=== PATIENT | female | born 1965 | race Caucasian/White ===

== ENCOUNTER 2018-09-11 12:04 | Emergency (ER) | payer BC ==
[2018-09-11 12:34] VITALS: BP 145/96
--- NOTE | 2018-09-11 13:06 | UC ---
Respiratory Complaint HPI - HPI Summary HPI Summary: 53 y/o female presents to the urgent care c/o nasal congestion w/ yellowish nasal discharge and moderate PND for the past 1.5 weeks. Pt reports her symptoms worsen for the past 4 days coming into her chest w/ productive cough and yellowish phlegm. Pt is a heavy everyday smoker. She has taken Mucinex PO to alleviate symptoms w/o any improvement. Mild sore throat and hoarseness. She couldn't sleep last night due to cough. Pt denies fever, FERNANDEZ, SOB, wheezing, chest pain,abdominal pain, N/V/D, dizziness. - History of Current Complaint Chief Complaint: UCRespiratory Stated Complaint: COUGH, HEAVY CHEST Time Seen by Provider: 09/11/18 13:02 Hx Obtained From: Patient ?: No - Menopausal Onset/Duration: Gradual Onset, Lasting Weeks - 1.5 weeks, Still Present, Worse Since - 4 days Timing: Intermittent Episodes Severity Initially: Mild Severity Currently: Moderate Pain Intensity: 4 Pain Scale Used: 0-10 Numeric Character: Cough: Productive, Sputum Description: - yellowish Aggravating Factors: Recumbent Position Alleviating Factors: OTC Meds - Mucinex PO Associated Signs And Symptoms: Positive: URI, Nasal Congestion, Hoarseness, Sinus Discomfort. Negative: Dyspnea, Fever, Chills, Wheezing - Risk Factors Pulmonary Embolism Risk Factors: Negative Cardiac Risk Factors: Negative, Hypertension, Smoking Pseudomonas Risk Factors: Negative Tuberculosis Risk Factors: Negative - Allergies/Home Medications Allergies/Adverse Reactions: Allergies Allergy/AdvReac Type Severity Reaction Status Date / Time No Known Allergies Allergy Verified 09/11/18 12:35 Home Medications: Home Medications Levothyroxine TAB* [Synthroid 125 MCG TAB*] 125 mcg PO 0800 09/11/18 [History Confirmed 09/11/18] Lisinopril TAB* [Prinivil TAB 5 MG*] 5 mg PO DAILY 09/11/18 [History Confirmed 09/11/18] Omeprazole 20 mg PO DAILY 09/11/18 [History Confirmed 09/11/18] guaiFENesin [Mucinex] 600 mg PO BID 09/11/18 [History Confirmed 09/11/18] PMH/Surg Hx/FS Hx/Imm Hx Previously Healthy: Yes Endocrine History: Hypothyroidism, Dyslipidemia Cardiovascular History: Hypertension - Surgical History Surgical History: None - Family History Known Family History: Positive: None - Pt denies PMHX - Social History Occupation: Employed Full-time Lives: With Family Alcohol Use: None Substance Use Type: None Smoking Status (MU): Heavy Every Day Tobacco Smoker Type: Cigarettes Amount Used/How Often: 1/2 ppd Length of Time of Smoking/Using Tobacco: since age 19 Have You Smoked in the Last Year: Yes Review of Systems All Other Systems Reviewed And Are Negative: Yes Constitutional: Positive: Negative Skin: Positive: Negative Eyes: Positive: Negative ENT: Positive: Sore Throat, Ear Ache - left ear pain, Nasal Discharge - yellowish, Sinus Congestion, Sinus Pain/Tenderness, Other - hoarseness Respiratory: Positive: Cough - productive w/ yellowish phlegm Cardiovascular: Positive: Negative Gastrointestinal: Positive: Negative Genitourinary: Positive: Negative Motor: Positive: Negative Neurovascular: Positive: Negative Musculoskeletal: Positive: Negative Neurological: Positive: Negative Psychological: Positive: Negative Is Patient Immunocompromised?: No Physical Exam - Summary Physical Exam Summary: Vital Signs Reviewed: Yes General: well developed, well nourished female sitting in the examining table w/ o any apparent distress Eyes: Positive: Conjunctiva Clear - PERRLA, EOMI, fundi grossly normal ENT: Positive: Normal ENT inspection, Hearing grossly normal, Pharynx normal, Nasal congestion - edematous and erythematous nasal mucosa, Nasal drainage - yellowish drainage, TMs normal. Negative: Tonsillar swelling, Tonsillar exudate Neck: Positive: Supple, Nontender, No Lymphadenopathy Respiratory: no orthopnea or dyspnea. Able to speak in full sentences, no retractions or accessory muscle use, no tripod position, stridor, or head bobbing. Positive breath sounds bilaterally. diffuse scattered rhonchi on b/ L lungs, no wheezes, no crackles or rales. Cardiovascular: Positive: RRR, No Murmur, Pulses Normal, Brisk Capillary Refill Abdomen Description: Positive: Nontender, No Organomegaly, Soft. Negative: CVA Tenderness (R), CVA Tenderness (L) Bowel Sounds: Positive: Present Musculoskeletal Exam: Normal Musculoskeletal: Positive: Strength Intact, ROM Intact, No Edema Neurological Exam: Normal Psychological Exam: Normal Skin Exam: Normal Triage Information Reviewed: Yes Vital Signs: Initial Vital Signs Temp 98 F 09/11/18 12:28 Pulse 103 09/11/18 12:28 Resp 16 09/11/18 12:28 BP 145/96 09/11/18 12:28 Pulse Ox 100 09/11/18 12:28 Respiratory Course/Dx - Course Course Of Treatment: 53 y/o female presents to the urgent care c/o nasal congestion w/ yellowish nasal discharge and moderate PND for the past 1.5 weeks. Pt reports her symptoms worsen for the past 4 days coming into her chest w/ productive cough and yellowish phlegm. Pt is a heavy everyday smoker. She has taken Mucinex PO to alleviate symptoms w/o any improvement. Mild sore throat and hoarseness. She couldn't sleep last night due to cough. Pt denies fever, FERNANDEZ, SOB, wheezing, chest pain,abdominal pain, N/V/D, dizziness. Hx obtained. Pt w/ B/L posterior lungs w/ scattered rhonchi on examination. O2SAt: 100%. Hx obtained. Pt w/ B/L lungs scattered wheezing and rhonchi on examination. O2Sat:97%. Pt w/ PMHX of asthma and heavy smoker in the past. Pt probably w/ a COPD exacerbation. Chest X-ray ordered: impression: findings of COPD, no acute disease observed. Pt will be tx w/ Rx Doxycycline PO , Albuterol inhaler and Tessalon tabs as directed below. Strongly advised to f/u with her PCP for further management she may be developing COPD. She also has elevated BP today, advised to decrease salt in her diet and monitor BP, if it continues to be elevated to f/u with her PCP. Pt understood and agreed with D/C instructions and left the clinic hemodynamically stable. - Differential Dx/Diagnosis Differential Diagnosis/HQI/PQRI: Asthma, Bronchitis, Influenza, Lower Resp Infection, Sinusitis, Other - pneumonia Provider Diagnosis: Acute bronchitis, Uncontrolled hypertension Discharge - Sign-Out/Discharge Documenting (check all that apply): Patient Departure - D/C home All imaging exams completed and their final reports reviewed: Yes - Discharge Plan Condition: Stable Disposition: HOME Prescriptions: Albuterol HFA INHALER* [Ventolin HFA Inhaler*] 1 - 2 puff INH Q6H PRN #1 mdi PRN Reason: bronchospasm Benzonatate CAP* [Tessalon 100 MG CAP*] 100 mg PO TID #21 cap DOXYcycline CAP(*) [DOXYcycline 100MG CAP(*)] 100 mg PO BID #20 cap Patient Education Materials: Acute Bronchitis (ED) Referrals: Hina Romano MD [Primary Care Provider] - 3 Days Additional Instructions: 1-Please take full course of antibiotic to avoid resistance. Take yogurts w/ probiotics or Culturelle to protect your GI system 2-Take Tessalon PO tabs as directed and use the albuterol inhaler to alleviate cough. Increase fluid intake, rest and eat well. 3- If symptoms do not improve or worsen or your develop SOB with fever and severe wheezing please go immediately to the ER further evaluation and treatment. 4- F/u with your PCP in 3 days for further management you may be developing COPD 5- Your BP is elevated today. please decrease salt in your diet, monitor BP and if it continues to be elevated please f/u with your PCP for further management. - Billing Disposition and Condition Condition: STABLE Disposition: Home
== END 2018-09-11 14:14 | disposition home or self-care (01) ==
LOC: UCCORT 12:04
DX: J20.9 Acute bronchitis, unspecified (principal); I10 Essential (primary) hypertension; E03.9 Hypothyroidism, unspecified; F17.210 Nicotine dependence, cigarettes, uncomplicated; Z79.899 Other long term (current) drug therapy
CPT/HCPCS: 71046; 99212; G0463